=== PATIENT | female | born 1965 | race American Indian/Alaskan Native ===

== ENCOUNTER 2022-01-09 10:36 | Emergency (ER) | payer SELFPAY ==
[2022-01-09] MEDS ORDERED: HYDROmorphone 0.5 MG/0.5 ML Syringe IM ONE (11:42)
== END 2022-01-09 14:18 | disposition home or self-care (01) ==
LOC: JD.ED 10:36
DX: S22.32XA Fracture of one rib, left side, initial encounter for closed fracture (principal); W01.0XXA Fall on same level from slipping, tripping and stumbling without subsequent striking against object, initial encounter
CPT/HCPCS: 71100; 72100; 96372; 99283; J1170